=== PATIENT | male | born 1960 | race Caucasian/White ===

== ENCOUNTER 2019-01-31 11:30 | Outpatient (CLI) | payer OTHER ==
[~2019-01-31 11:30] MED LIST: LIPITOR20 MG; [UNRECOGNIZED DRUG - OTHER]
== END 2019-01-31 11:50 | disposition home or self-care (01) ==
LOC: RAD 11:30
DX: M25.552 Pain in left hip (principal); M25.571 Pain in right ankle and joints of right foot

== ENCOUNTER 2023-02-06 13:28 | Emergency (ER) | payer OTHER ==
[~2023-02-06] VITALS: Ht 182.9 cm; Wt 113.4 kg
== END 2023-02-06 19:32 | disposition home or self-care (01) ==
LOC: ER 13:28
DX: S89.82XA Other specified injuries of left lower leg, initial encounter (principal); X58.XXXA Exposure to other specified factors, initial encounter; Y93.89 Activity, other specified; Y92.89 Other specified places as the place of occurrence of the external cause; Y99.8 Other external cause status; Z88.6 Allergy status to analgesic agent

== ENCOUNTER 2023-09-27 07:29 | Outpatient (CLI) | payer OTHER | END 2023-09-27 07:31 | disposition home or self-care (01) | LOC: NUCLEAR 07:29 | PROVIDERS: ATTEND Internal Medicine Rheumatology | DX: M25.50 Pain in unspecified joint (principal) ==